=== PATIENT | male | born 1965 | race Caucasian/White ===

== ENCOUNTER 2022-03-25 22:43 | Emergency (ER) | payer OTHER ==
[~2022-03-25] VITALS: Ht 167.6 cm; Wt 81.6 kg
--- NOTE | 2022-03-25 22:46 | NUR ---
PT bibself from home c/o Painless bumps to penis x 2 weeks. PT A/OX4. TOLERATING R/A WELL WITH NO RESP DISTRESS. SAFTEY MEASURES IN PLACE.
[2022-03-25] MEDS ORDERED: CEFTRIAXONE 500 MG VIAL ONE (23:18)
[2022-03-25] MEDS ORDERED: LIDOCAINE /MPF 1% VIAL 5 ML VIAL ONE (23:19)
[2022-03-25] MEDS ORDERED: AZITHROMYCIN 250 MG TABLET ONE ×2 (23:19→23:25)
[2022-03-25] MEDS ORDERED: METRONIDAZOLE 500 MG TABLET ONE (23:19)
--- NOTE | 2022-03-25 23:20 | NUR ---
URINE SAMPLE SENT TO LAB
[2022-03-25] MEDS ORDERED: AZITHROMYCIN 250 MG TABLET PO ONE (23:30)
[2022-03-25] MEDS ORDERED: CEFTRIAXONE 500 MG VIAL IM ONE (23:30)
[2022-03-25] MEDS ORDERED: METRONIDAZOLE 500 MG TABLET PO ONE (23:30)
[2022-03-25 23:51] LABS: BILIRUBIN,URINE NEGATIVE (NEGATIVE); COLOR,URINE YELLOW (YELLOW); LEUKOCYTE ESTERASE ,URINE NEGATIVE (NEGATIVE); NITRITE, URINE NEGATIVE (NEGATIVE); PH,URINE 5.5 (5.0-8.0); PROTEIN,URINE NEGATIVE (NEGATIVE); UGLUCOSE >=1000 mg/dL (NEGATIVE); UROBILINOGEN,URINE 0.2 EU/dL (0.2)
[2022-03-26] MEDS ORDERED: PENICILLIN G BENZATHINE 2.4 MMU/4 ML ML IM ONE ×2 (00:30→00:32)
--- NOTE | 2022-03-26 00:47 | NUR ---
Patient discharged to home in stable condition. Written and verbal after care instructions given. Patient verbalizes understanding of instruction. PT ambulatory with a steady gait
[2022-03-26 01:15] VITALS: BP 127/75
== END 2022-03-26 01:05 | disposition home or self-care (01) ==
LOC: ER 22:47
DX: Z11.3 Encounter for screening for infections with a predominantly sexual mode of transmission (principal); E11.9 Type 2 diabetes mellitus without complications
CPT/HCPCS: 99284; 86592; 86593; 96372 ×2; 81003; 36415; 87491; 87591; J0696; J3490; J0558